=== PATIENT | female | born 1975 | race American Indian/Alaskan Native ===

== ENCOUNTER 2020-07-29 11:29 | Emergency (ER) | payer MEDICAID ==
--- NOTE | 2020-07-29 11:33 | Event Note ---
ED Screening Note Date of service: 07/29/20 Time: 11:32 ED Screening Note: Patient complains of a chest pain or shortness of breath x2 days History of diabetes Patient does appear short of breath examination This initial assessment/diagnostic orders/clinical plan/treatment(s) is/are subject to change based on patients health status, clinical progression and re- assessment by fellow clinical providers in the ED. Further treatment and workup at subsequent clinical providers discretion. Patient/guardian urged not to elope from the ED as their condition may be serious if not clinically assessed and managed. Initial orders include: Labs EKG POC glucose Chest x-ray
--- NOTE | 2020-07-29 12:08 | XRay Report ---
CHEST 2 VIEWS INDICATION / CLINICAL INFORMATION: Shortness of breath, chest pain. COMPARISON: None available. FINDINGS: SUPPORT DEVICES: None. HEART / MEDIASTINUM: No significant abnormality. LUNGS / PLEURA: There is generalized bilateral interstitial prominence with bibasilar interstitial op acities, right greater than left. No significant pleural effusion. No pneumothorax. ADDITIONAL FINDINGS: No significant additional findings. IMPRESSION: Suspected bilateral interstitial edema/atelectasis given the provided history. Please correlate with the clinical findings. Signer Name: Alexandru Godoy MD Signed: 07/29/2020 12:03 PM Workstation Name: [id number]
[2020-07-29 13:05] LABS: Basophils # (Auto) 0.1 K/mm3 (0.0-0.1); Basophils % (Auto) 0.7 % (0.0-1.8); Eosinophils # (Auto) 0.1 K/mm3 (0.0-0.4); Eosinophils % (Auto) 1.3 % (0.0-4.3); Hematocrit 44.3 % (30.3-42.9); Hemoglobin 14.8 gm/dl (10.1-14.3); Lymphocytes # (Auto) 2.9 K/mm3 (1.2-5.4); Lymphocytes % (Auto) 35.7 % (13.4-35.0); Mean Corpuscular HGB Conc 33 % (30-34); Mean Corpuscular Volume 93 fl (79-97); Monocytes # (Auto) 0.5 K/mm3 (0.0-0.8); Monocytes % (Auto) 6.3 % (0.0-7.3); Platelet Count 337 K/mm3 (140-440); Red Blood Count 4.74 M/mm3 (3.65-5.03); Red Cell Distribution Width 13.5 % (13.2-15.2)
[2020-07-29 13:43] LABS: Alanine Aminotransferase 16 units/L (7-56); Albumin 4.3 g/dL (3.9-5); Blood Urea Nitrogen 7 mg/dL (7-17); Calcium 9.8 mg/dL (8.4-10.2); Hemolysis Index 14
[2020-07-29 13:57] LABS: BUN/Creatinine Ratio 12
--- NOTE | 2020-07-29 16:42 | Emergency Department Report ---
ED Chest Pain HPI - General Chief Complaint: Chest Pain Stated Complaint: CHEST PAIN Time Seen by Provider: 07/29/20 11:31 Source: patient Mode of arrival: Ambulatory Limitations: No Limitations - History of Present Illness Initial Comments: Patient is 45-year-old female with history of diabetes and chronic alcohol abuse. Patient presented to the ER complaining of epigastric, chest pain for the last 2days. Patient described her pain as sharp with no radiation. Patient stated that she had history of pancreatitis secondary to alcohol. Patient kyle ed any shortness of breath, fever, chills or cough. MD Complaint: chest pain -: days(s) Onset: during rest Pain Location: epigastric Pain Radiation: none Severity: moderate Severity scale (0 -10): 5 Quality: sharp - Related Data Allergies Allergy/AdvReac Type Severity Reaction Status Date / Time No Known Allergies Allergy Unverified 07/29/20 17:58 Heart Score - HEART Score History: Slightly suspicious EKG: Normal Age: 45-65 Risk factors: 1-2 risk factors Troponin: < normal limit HEART Score: 2 - EKG Read Time Time EKG Completed: 11:36 EKG Read Time: 11:37 ED Review of Systems ROS: Stated complaint: CHEST PAIN Other details as noted in HPI Comment: All other systems reviewed and negative Constitutional: denies: chills, fever Respiratory: denies: cough, shortness of breath Cardiovascular: chest pain. denies: palpitations Gastrointestinal: denies: abdominal pain, nausea, vomiting Musculoskeletal: denies: back pain Neurological: denies: headache, weakness, numbness, paresthesias, confusion ED Past Medical Hx - Past Medical History Previous Medical History?: Yes Hx Diabetes: Yes ED Physical Exam - General Limitations: No Limitations General appearance: alert, in no apparent distress - Head Head exam: Present: atraumatic, normocephalic, normal inspection - Eye Eye exam: Present: normal appearance, PERRL - ENT ENT exam: Present: normal exam, normal orophraynx, mucous membranes moist - Neck Neck exam: Present: normal inspection, full ROM. Absent: tenderness, meningismus - Respiratory Respiratory exam: Present: normal lung sounds bilaterally, chest wall tenderness - Cardiovascular Cardiovascular Exam: Present: regular rate, normal rhythm, normal heart sounds - GI/Abdominal GI/Abdominal exam: Present: soft, normal bowel sounds. Absent: distended, tenderness, guarding, rebound, rigid, organomegaly, mass, bruit, pulsatile mass, hernia - Extremities Exam Extremities exam: Present: normal inspection, full ROM, normal capillary refill. Absent: pedal edema, calf tenderness - Back Exam Back exam: Present: normal inspection, full ROM. Absent: CVA tenderness (R), CVA tenderness (L) - Neurological Exam Neurological exam: Present: alert, oriented X3, CN II-XII intact - Psychiatric Psychiatric exam: Present: normal mood - Skin Skin exam: Present: warm, intact, normal color ED Course Vital Signs 07/29/20 17:56 Pulse Rate 82 Respiratory 22 Rate Blood Pressure 147/93 O2 Sat by Pulse 93 Oximetry ED Medical Decision Making - Lab Data Result diagrams: 07/29/20 12:20 07/29/20 12:20 - EKG Data -: EKG Interpreted by Ga EKG shows normal: sinus rhythm Rate: normal - EKG Data Interpretation: no acute changes - Radiology Data Radiology results: report reviewed - Medical Decision Making Patient is 45-year-old female with history of diabetes and chronic alcohol abuse. Patient presented to the ER complaining of epigastric, chest pain for the last 2days. Patient described her pain as sharp with no radiation. Patient stated that she had history of pancreatitis secondary to alcohol. Patient denied any shortness of breath, fever, chills or cough. Patient remained stable. EKG is unremarkable. Labs reviewed and is negative including troponin x2. Chest x-ray is unremarkable. Patient has a reproducible chest tenderness with possibility of acute costochondritis however patient strongly advised to follow-up with her primary care physician for outpatient cardiac work-up patient also advised to return to the ER if she develop any new symptoms. Critical care attestation.: If time is entered above; I have spent that time in minutes in the direct care of this critically ill patient, excluding procedure time. ED Disposition Clinical Impression: Acute chest pain, Costochondritis, acute Disposition: -01 TO HOME OR SELFCARE Is pt being admited?: No Condition: Stable Instructions: Chest Pain (ED), Costochondritis, [id number], Nonspecific Chest Pain, Adult, [id number] Referrals: PRIMARY CARE, [Primary Care Provider] - 3-5 Days
[2020-07-29] MEDS ORDERED: KETOROLAC 60 MG/2 ML INJ IM ONE (17:59)
[2020-07-29 20:14] VITALS: BP 127/89
--- NOTE | 2020-07-30 14:14 | Electrocardiograph Report ---
[facility] Test Date: 2020-07-29 Test Time: 11:36:27 Pat Name: POLO MOTA Department: ED Room: Gender: F Etymology Professor: ZELALEM : 1975 Requested By: MICHELET QUINTERO Order Number: [id number] Reading MD: Leona Dubose Measurements Intervals Whiteside Rate: 92 P: 41 AR: 141 QRS: 47 QRSD: 77 T: 60 QT: 429 QTc: 531 Interpretive Statements Sinus rhythm Prolonged QT interval No previous ECG available for comparison Electronically Signed On 07-30-2020 14:14:21 EDT by Leona Dubose
== END 2020-07-29 20:14 | disposition home or self-care (01) ==
LOC: ED 11:29
DX: M94.0 Chondrocostal junction syndrome [Tietze] (principal); R07.89 Other chest pain; E11.9 Type 2 diabetes mellitus without complications
CPT/HCPCS: 36415; 71046; 80053; 82962; 83690; 83880; 84484; 85025; 93005; 96372; 99284; J1885; 80320; G0480

== ENCOUNTER 2020-11-20 12:37 | Inpatient (IN) | payer MEDICAID ==
[2020-11-20] MEDS ORDERED: FAMOTIDINE 20 MG/2 ML INJ IV ONE (13:34)
[2020-11-20] MEDS ORDERED: SODIUM CHLORIDE 0.9% 1000 ML 1,000 ML IV ONE ×2 (13:34→13:35)
[2020-11-20] MEDS ORDERED: ONDANSETRON 4 MG/2 ML INJ IV ONE ×2 (13:34→15:47)
[2020-11-20] MEDS ORDERED: KETOROLAC 30 MG/1 ML INJ IV ONE (13:34)
[2020-11-20] MEDS ORDERED: DICYCLOMINE 20 MG/2 ML INJ IM ONE (13:34)
[2020-11-20 13:55] LABS: Basophils # (Auto) 0.1 K/mm3 (0.0-0.1); Basophils % (Auto) 0.9 % (0.0-1.8); Eosinophils # (Auto) 0.1 K/mm3 (0.0-0.4); Eosinophils % (Auto) 1.3 % (0.0-4.3); Hematocrit 43.4 % (30.3-42.9); Hemoglobin 15.2 gm/dl (10.1-14.3); Lymphocytes # (Auto) 2.5 K/mm3 (1.2-5.4); Lymphocytes % (Auto) 22.3 % (13.4-35.0); Mean Corpuscular HGB Conc 35 % (30-34); Mean Corpuscular Volume 92 fl (79-97); Monocytes # (Auto) 0.6 K/mm3 (0.0-0.8); Monocytes % (Auto) 5.3 % (0.0-7.3); Red Blood Count 4.72 M/mm3 (3.65-5.03); Red Cell Distribution Width 13.5 % (13.2-15.2)
[2020-11-20 14:18] LABS: Alanine Aminotransferase 19 units/L (7-56); Albumin 3.9 g/dL (3.9-5); Blood Urea Nitrogen 12 mg/dL (7-17); Calcium 9.4 mg/dL (8.4-10.2); Hemolysis Index 202
[2020-11-20 14:30] LABS: BUN/Creatinine Ratio 24
[2020-11-20] MEDS ORDERED: MORPHINE 4 MG/1 ML INJ IV ONE (15:47)
--- NOTE | 2020-11-20 16:55 | Cat Scan Report ---
CT ABDOMEN AND PELVIS WITHOUT IV CONTRAST INDICATION: pancreatitis. COMPARISON: None available. TECHNIQUE: All CT scans at this facility use dose modulation, automated exposure control, iterative reconstructi on or weight based dosing, when appropriate, to reduce radiation dose to as low as reasonably achieva ble. FINDINGS: Lung Bases: Dependent groundglass opacities may be atelectatic. Skeletal System: No acute abnormality. ABDOMEN: Liver: No significant abnormality. Gallbladder: Removed. Bile Ducts: No significant abnormality. Pancreas: There is peripancreatic stranding adjacent to the neck, head, and uncinate. Spleen: No significant abnormality. Adrenals: No significant abnormality. Right Kidney: No significant abnormality. Left Kidney: No significant abnormality. Upper GI tract: No significant abnormality. Lymph Nodes: No significant adenopathy. Aorta: No significant abnormality. Additional Findings: No significant abnormality. PELVIS: Colon: No acute abnormality. Urinary Bladder and Distal Ureters: No significant abnormality. Appendix: No significant abnormality. Lymph Nodes: No significant adenopathy. Additional Findings: None. IMPRESSION: 1. Acute pancreatitis. Given noncontrast technique, no pancreatitis-related complications are seen. 2. Incidental findings, as above. Signer Name: Miguel Angel Leyva MD Signed: 11/20/2020 4:51 PM Workstation Name: [email or web address]
[2020-11-20 17:15] LABS: Platelet Count 256 K/mm3 (140-440)
--- NOTE | 2020-11-20 17:30 | Emergency Department Report ---
ED Abdominal Pain HPI - General Chief Complaint: Abdominal Pain Stated Complaint: PAIN Time Seen by Provider: 11/20/20 13:31 Source: patient Mode of arrival: Wheelchair Limitations: No Limitations - History of Present Illness Initial Comments: Patient is a 45-year-old F [place] female with a past medical history of alcohol abuse diabetes and pancreatitis who is presenting with epigastric pain nausea vomiting for the past 2 days. Patient was drinking up until yesterday. Has been unable to keep anything down. Patient is is a poor historian secondary to the pain that she is writhing back and forth not giving much information other than that she is in extreme pain. Patient actively vomiting on her arrival. She is denying any fevers chills cough cold or congestion Severity scale (0 -10): 10 - Related Data Previous Rx's Medication Instructions Recorded Last Taken Type Naproxen [Naprosyn] 500 mg PO BID #14 tablet 07/29/20 Unknown Rx Allergies Allergy/AdvReac Type Severity Reaction Status Date / Time No Known Allergies Allergy Unverified 07/29/20 17:58 ED Review of Systems ROS: Stated complaint: PAIN Other details as noted in HPI Comment: All other systems reviewed and negative ED Past Medical Hx - Past Medical History Hx Diabetes: Yes - Social History Smoking Status: Unknown if ever smoked - Medications Home Medications: Home Medications Medication Instructions Recorded Confirmed Last Taken Type Naproxen [Naprosyn] 500 mg PO BID #14 tablet 07/29/20 Unknown Rx ED Physical Exam - General Limitations: No Limitations General appearance: alert, in distress - Head Head exam: Present: atraumatic, normocephalic - Eye Eye exam: Present: normal appearance, PERRL, EOMI - ENT ENT exam: Present: mucous membranes moist - Neck Neck exam: Present: normal inspection - Respiratory Respiratory exam: Present: normal lung sounds bilaterally. Absent: respiratory distress, wheezes, rales, rhonchi - Cardiovascular Cardiovascular Exam: Present: regular rate, normal rhythm, normal heart sounds. Absent: systolic murmur, diastolic murmur, rubs, gallop - GI/Abdominal GI/Abdominal exam: Present: soft, tenderness, normal bowel sounds. Absent: distended, guarding, rebound, rigid - Extremities Exam Extremities exam: Present: normal inspection - Back Exam Back exam: Present: normal inspection - Neurological Exam Neurological exam: Present: alert, oriented X3 - Psychiatric Psychiatric exam: Present: normal affect, normal mood - Skin Skin exam: Present: warm, dry, intact, normal color. Absent: rash ED Course Vital Signs 11/20/20 11/20/20 12:44 13:30 Respiratory 20 18 Rate O2 Sat by Pulse 100 97 Oximetry ED Medical Decision Making - Lab Data Result diagrams: 11/20/20 13:34 11/20/20 16:00 Lab Results 11/20/20 11/20/20 11/20/20 Range/Units 13:34 13:44 16:00 WBC 11.2 H (4.5-11.0) K/mm3 RBC 4.72 (3.65-5.03) M/mm3 Hgb 15.2 H (10.1-14.3) gm/dl Hct 43.4 H (30.3-42.9) % MCV 92 (79-97) fl MCH 32 (28-32) pg MCHC 35 H (30-34) % RDW 13.5 (13.2-15.2) % Plt Count 256 (140-440) K/mm3 Lymph % (Auto) 22.3 (13.4-35.0) % Morton % (Auto) 5.3 (0.0-7.3) % Eos % (Auto) 1.3 (0.0-4.3) % Baso % (Auto) 0.9 (0.0-1.8) % Lymph # (Auto) 2.5 (1.2-5.4) K/mm3 Morton # (Auto) 0.6 (0.0-0.8) K/mm3 Eos # (Auto) 0.1 (0.0-0.4) K/mm3 Baso # (Auto) 0.1 (0.0-0.1) K/mm3 Seg Neutrophils % 70.2 H (40.0-70.0) % Seg Neutrophils # 7.9 H (1.8-7.7) K/mm3 Sodium 131 L (137-145) mmol/L Potassium 5.9 H (3.6-5.0) mmol/L Chloride 97.7 L (98-107) mmol/L Carbon Dioxide 19 L (22-30) mmol/L Anion Gap 20 mmol/L BUN 12 (7-17) mg/dL Creatinine 0.5 L (0.6-1.2) mg/dL Estimated GFR > 60 ml/min BUN/Creatinine Ratio 24 % Glucose 285 H (65-100) mg/dL Calcium 9.4 (8.4-10.2) mg/dL Total Bilirubin 0.50 (0.1-1.2) mg/dL AST 31 (5-40) units/L ALT 19 (7-56) units/L Alkaline Phosphatase 147 H (35-129) units/L Total Protein 7.6 (6.3-8.2) g/dL Albumin 3.9 (3.9-5) g/dL Albumin/Globulin Ratio 1.1 % Lipase 988 H (13-60) units/L Plasma/Serum Alcohol < 0.01 (0-0.07) % 11/20/20 Range/Units 16:00 WBC (4.5-11.0) K/mm3 RBC (3.65-5.03) M/mm3 Hgb (10.1-14.3) gm/dl Hct (30.3-42.9) % MCV (79-97) fl MCH (28-32) pg MCHC (30-34) % RDW (13.2-15.2) % Plt Count (140-440) K/mm3 Lymph % (Auto) (13.4-35.0) % Morton % (Auto) (0.0-7.3) % Eos % (Auto) (0.0-4.3) % Baso % (Auto) (0.0-1.8) % Lymph # (Auto) (1.2-5.4) K/mm3 Morton # (Auto) (0.0-0.8) K/mm3 Eos # (Auto) (0.0-0.4) K/mm3 Baso # (Auto) (0.0-0.1) K/mm3 Seg Neutrophils % (40.0-70.0) % Seg Neutrophils # (1.8-7.7) K/mm3 Sodium (137-145) mmol/L Potassium 3.8 D (3.6-5.0) mmol/L Chloride (98-107) mmol/L Carbon Dioxide (22-30) mmol/L Anion Gap mmol/L BUN (7-17) mg/dL Creatinine (0.6-1.2) mg/dL Estimated GFR ml/min BUN/Creatinine Ratio % Glucose (65-100) mg/dL Calcium (8.4-10.2) mg/dL Total Bilirubin (0.1-1.2) mg/dL AST (5-40) units/L ALT (7-56) units/L Alkaline Phosphatase (35-129) units/L Total Protein (6.3-8.2) g/dL Albumin (3.9-5) g/dL Albumin/Globulin Ratio % Lipase (13-60) units/L Plasma/Serum Alcohol (0-0.07) % - Radiology Data [facility] [address] [place] [address] Cat Scan Report Signed Patient: POLO MOTA MR#: [id number] : 1975 Acct:[id number] Age/Sex: 45 / F ADM Date: 11/20/20 Loc: ED Attending Dr: Ordering Physician: JERROD FARAH MD Date of Service: 11/20/20 Procedure(s): CT abdomen pelvis wo con Accession Number(s): [id number] cc: JERROD FARAH MD CT ABDOMEN AND PELVIS WITHOUT IV CONTRAST INDICATION: pancreatitis. COMPARISON: None available. TECHNIQUE: All CT scans at this facility use dose modulation, automated exposure control, iterative reconstruction or weight based dosing, when appropriate, to reduce radiation dose to as low as reasonably achievable. FINDINGS: Lung Bases: Dependent groundglass opacities may be atelectatic. Skeletal System: No acute abnormality. ABDOMEN: Liver: No significant abnormality. Gallbladder: Removed. Bile Ducts: No significant abnormality. Pancreas: There is peripancreatic stranding adjacent to the neck, head, and uncinate. Spleen: No significant abnormality. Adrenals: No significant abnormality. Right Kidney: No significant abnormality. Left Kidney: No significant abnormality. Upper GI tract: No significant abnormality. Lymph Nodes: No significant adenopathy. Aorta: No significant abnormality. Additional Findings: No significant abnormality. PELVIS: Colon: No acute abnormality. Urinary Bladder and Distal Ureters: No significant abnormality. Appendix: No significant abnormality. Lymph Nodes: No significant adenopathy. Additional Findings: None. IMPRESSION: 1. Acute pancreatitis. Given noncontrast technique, no pancreatitis-related complications are seen. 2. Incidental findings, as above. Signer Name: Miguel Angel Leyva MD Signed: 11/20/2020 4:51 PM Workstation Name: [id number] - Medical Decision Making Patient with laboratory and CT evidence of acute pancreatitis. Patient started on IV hydration was given pain medication for pain control and antiemetics patient be admitted to the hospitalist service. Patient still with a pain level of 7 out of 10 after doses of morphine were given. Critical care attestation.: If time is entered above; I have spent that time in minutes in the direct care of this critically ill patient, excluding procedure time. ED Disposition Clinical Impression: Acute pancreatitis Disposition: 09 ADMITTED INPATIENT Is pt being admited?: Yes Does the pt Need Aspirin: No Condition: Stable Instructions: Abdominal Pain (ED), Acute Pancreatitis Time of Disposition: 17:31
[2020-11-20] MEDS ORDERED: ACETAMINOPHEN 325 MG TAB PO PRN (18:06)
--- NOTE | 2020-11-20 18:06 | History and Physical Report ---
History of Present Illness Chief complaint: My stomach hurts History of present illness: 45 YO Female with Obesity Hypoventilation Syndrome, ETOH Dependence, Recurrent Pancreatitis, DM presents to ED for evaluation. Patient reports "my stomach hurts". Patient states that she has experienced abdominal pain, nausea, m ultiple episodes of vomiting over the past 2 days with persistent symptoms over the same timeframe. Patient acknowledges alcohol ingestion over the past several days which was discontinued on yesterday due to multiple episodes of vomiting. Patient transported to [facility] via private vehicle for further care and evaluation of the aforementioned symptoms. The patient was seen and evaluated in the emergency department. All lab and imaging studies reviewed. Patient found to have acute pancreatitis suspected secondary to alcohol ingestion complicated by systemic inflammatory response syndrome. Patient admitted to medical floor and treated with IV fluid resuscitation therapy, pain control and supportive care. Patient denies fever, chills, chest pain, palpitation, productive cough, skin rash, recent ill contacts, ingestion of food/water from new or different sources, or known exposure to COVID-19. No prior admission for review. No medication listed at time of admission for reconciliation. Past History Past Medical History: diabetes, other (See HPI) Past Surgical History: No surgical history Social history: alcohol abuse Family history: hypertension Medications and Allergies Allergies Allergy/AdvReac Type Severity Reaction Status Date / Time No Known Allergies Allergy Unverified 07/29/20 17:58 Home Medications Medication Instructions Recorded Confirmed Last Taken Type Naproxen [Naprosyn] 500 mg PO BID #14 tablet 07/29/20 Unknown Rx Review of Systems Constitutional: no weight loss, no weight gain, no fever, no sweats Ears, nose, mouth and throat: no ear pain, no tinnitis, no decreased hearing, no nasal congestion Breasts: no change in shape, no swelling, no mass Cardiovascular: no chest pain, no orthopnea, no edema, no syncope Respiratory: no cough, no excessive sputum, no hemoptysis Gastrointestinal: abdominal pain, nausea, vomiting, no constipation, no hematemesis, no coffee ground emesis, no BRBPR, no melena, no hematochezia, no loss of appetite, no early satiety Genitourinary Female: no pelvic pain, no flank pain, no dysuria, no urinary frequency, no urgency Rectal: no pain, no incontinence Musculoskeletal: no neck pain, no arm numbness/tingling, no low back pain, no leg numbness/tingling Integumentary: no rash, no redness, no wounds, no jaundice Neurological: no head injury, no transient paralysis, no weakness, no parathesias, no tingling, no seizures, no syncope Psychiatric: no anxiety, no change in sleep habits, no hypersomnia, no change in appetite Endocrine: no cold intolerance, no polyphagia, no excessive thirst, no excessive sweating Hematologic/Lymphatic: no easy bruising, no easy bleeding, no lymphadenopathy Allergic/Immunologic: no allergic rhinitis, no wheezing Exam - Constitutional Vitals: Temp Pulse Resp BP Pulse Ox 18 97 11/20/20 17:35 11/20/20 13:30 General appearance: Present: mild distress, obese - EENT Eyes: Present: PERRL ENT: hearing intact, clear oral mucosa - Neck Neck: Present: supple, normal ROM - Respiratory Respiratory effort: normal Respiratory: bilateral: CTA - Cardiovascular Heart Sounds: Present: S1 & S2. Absent: rub, click - Extremities Extremities: pulses symmetrical, No edema Peripheral Pulses: within normal limits - Abdominal General gastrointestinal: Present: soft, non-tender, non-distended, normal bowel sounds Female genitourinary: Present: normal - Integumentary Integumentary: Present: clear, warm, dry - Musculoskeletal Musculoskeletal: gait normal, strength equal bilaterally - Psychiatric Psychiatric: appropriate mood/affect, intact judgment & insight - Neurologic Neurologic: CNII-XII intact, moves all extremities Results - Labs CBC & Chem 7: 11/20/20 13:34 11/20/20 16:00 Labs: Abnormal lab results 11/20/20 11/20/20 Range/Units 13:34 13:44 WBC 11.2 H (4.5-11.0) K/mm3 Hgb 15.2 H (10.1-14.3) gm/dl Hct 43.4 H (30.3-42.9) % MCHC 35 H (30-34) % Seg Neutrophils % 70.2 H (40.0-70.0) % Seg Neutrophils # 7.9 H (1.8-7.7) K/mm3 Sodium 131 L (137-145) mmol/L Potassium 5.9 H (3.6-5.0) mmol/L Chloride 97.7 L (98-107) mmol/L Carbon Dioxide 19 L (22-30) mmol/L Creatinine 0.5 L (0.6-1.2) mg/dL Glucose 285 H (65-100) mg/dL Alkaline Phosphatase 147 H (35-129) units/L Lipase 988 H (13-60) units/L Assessment and Plan - Patient Problems (1) Acute pancreatitis Status: Acute Plan to address problem: CT scan abdomen and pelvis, serial abdominal exam, IV fluid resuscitation therapy, pain control, bowel rest, repeat lipase in a.m. (2) Alcohol dependence Status: Acute Plan to address problem: CIWA protocol, supportive care, outpatient Alcoholics Anonymous meeting attendance at discharge. (3) Obesity hypoventilation syndrome Status: Acute Plan to address problem: Balanced diet, increase physical activity discharge, outpatient pulmonary follow-up for sleep study. (4) Diabetes Status: Acute Plan to address problem: Consistent carbohydrate diet when patient is able to tolerate oral intake, insulin protocol, hypoglycemia protocol (5) DVT prophylaxis Status: Acute Plan to address problem: SCD to bilateral lower extremities while in bed, patient is ambulatory (6) Advance care planning Status: Acute Plan to address problem: Disease education conducted, care plan discussed, diagnosis discussed, prognosis discussed, patient is full code. Patient knowledges understanding and agreement with care plan. Patient counseled regarding alcohol cessation.
[2020-11-20] MEDS ORDERED: SODIUM CHLORIDE 0.9% 1000 ML 1,000 ML IV SCH (18:15)
[2020-11-20] MEDS ORDERED: THIAMINE 100 MG, FOLIC ACID 1 MG, MULTIPLE VITAMIN INJ, ADULT 10 ML in SODIUM CHLORIDE ... IV ONE (18:17)
[2020-11-20] MEDS: LORazepam 2 MG/ML VIAL IV PRN (21:31)
[2020-11-20] MEDS: MORPHINE 4 MG/1 ML INJ IV PRN (21:31)
[2020-11-20] MEDS: ONDANSETRON 4 MG/2 ML INJ IV PRN (22:20)
[2020-11-21] MEDS: LORazepam 2 MG/ML VIAL IV PRN ×5 (01:14→18:04)
[2020-11-21] MEDS: MORPHINE 2 MG/1 ML INJ IV PRN ×3 (01:14→21:16)
[2020-11-21] MEDS: ONDANSETRON 4 MG/2 ML INJ IV PRN (03:54)
[2020-11-21 07:09] LABS: Alanine Aminotransferase 11 units/L (7-56); Albumin 3.6 g/dL (3.9-5); BUN/Creatinine Ratio 20; Blood Urea Nitrogen 10 mg/dL (7-17); Calcium 8.7 mg/dL (8.4-10.2); Hemolysis Index 5
[2020-11-21] MEDS: MORPHINE 4 MG/1 ML INJ IV PRN (07:22)
--- NOTE | 2020-11-21 07:43 | Progress Note ---
Assessment and Plan Assessment and plan: 45-year-old female with history of alcohol dependence, OHS, recurrent alcoholic pancreatitis who presented with abdominal pain, nausea and vomiting. Found to have acute pancreatitis secondary to alcohol. Patient stable, tolerating clear liquid diet and IV fluids. #Acute pancreatitis -Physical exam, CT abdomen and lipase indicative of acute pancreatitis -Continue IV fluids -Advance diet as tolerated -As needed pain medications #Hyperkalemia -K 5.9 -Improved to 3.8 after medical management -will continue to monitor #Alcohol dependence -Chronic -[facility] protocol -Thiamine and folate supplementation -will monitor potassium and magnesium levels -will benefit from attending AA was discharged #Type 2 diabetes -SSI + Accu-Cheks #Obesity hypoventilation syndrome -Counseled on importance of weight loss -will need outpatient sleep study Disposition Plan: Home Total Time Spent with Patient (Minutes): 30 minutes History Interval history: No acute events overnight. Patient continues to report abdominal pain and hunger. No other complaints. Hospitalist Physical - Physical exam Narrative exam: GENERAL: Well-developed well-nourished. Lying in bed sleep, no acute distress. CHEST/LUNGS: CTAB on room air HEART/CARDIOVASCULAR: RRR. No murmur, rubs or gallops appreciated. ABDOMEN: +BS. Tender to palpation in epigastrium. NEURO: No focal motor deficit. Follows all commands. MUSCULOSKELETAL: No joint effusion EXTREMITIES: No cyanosis, clubbing or edema. PSYCH: Cooperative. - Constitutional Vitals: Temp Pulse Resp BP Pulse Ox 98.1 F 94 H 20 140/85 95 11/21/20 05:07 11/21/20 05:07 11/21/20 05:07 11/21/20 05:07 11/21/20 05:07 General appearance: Present: mild distress, obese Results - Labs CBC & Chem 7: 11/20/20 13:34 11/21/20 05:37 Labs: Laboratory Last Values WBC 11.2 K/mm3 (4.5-11.0) H 11/20/20 13:34 RBC 4.72 M/mm3 (3.65-5.03) 11/20/20 13:34 Hgb 15.2 gm/dl (10.1-14.3) H 11/20/20 13:34 Hct 43.4 % (30.3-42.9) H 11/20/20 13:34 MCV 92 fl (79-97) 11/20/20 13:34 MCH 32 pg (28-32) 11/20/20 13:34 MCHC 35 % (30-34) H 11/20/20 13:34 RDW 13.5 % (13.2-15.2) 11/20/20 13:34 Plt Count 256 K/mm3 (140-440) 11/20/20 13:34 Lymph % (Auto) 22.3 % (13.4-35.0) 11/20/20 13:34 Burt % (Auto) 5.3 % (0.0-7.3) 11/20/20 13:34 Eos % (Auto) 1.3 % (0.0-4.3) 11/20/20 13:34 Baso % (Auto) 0.9 % (0.0-1.8) 11/20/20 13:34 Lymph # (Auto) 2.5 K/mm3 (1.2-5.4) 11/20/20 13:34 Burt # (Auto) 0.6 K/mm3 (0.0-0.8) 11/20/20 13:34 Eos # (Auto) 0.1 K/mm3 (0.0-0.4) 11/20/20 13:34 Baso # (Auto) 0.1 K/mm3 (0.0-0.1) 11/20/20 13:34 Seg Neutrophils % 70.2 % (40.0-70.0) H 11/20/20 13:34 Seg Neutrophils # 7.9 K/mm3 (1.8-7.7) H 11/20/20 13:34 Sodium 131 mmol/L (137-145) L 11/20/20 13:44 Potassium 3.8 mmol/L (3.6-5.0) D 11/20/20 16:00 Chloride 97.7 mmol/L (98-107) L 11/20/20 13:44 Carbon Dioxide 20 mmol/L (22-30) L 11/21/20 05:37 Anion Gap 20 mmol/L 11/20/20 13:44 BUN 10 mg/dL (7-17) 11/21/20 05:37 Creatinine 0.5 mg/dL (0.6-1.2) L 11/21/20 05:37 Estimated GFR > 60 ml/min 11/21/20 05:37 BUN/Creatinine Ratio 20 % 11/21/20 05:37 Glucose 196 mg/dL (65-100) H 11/21/20 05:37 Calcium 8.7 mg/dL (8.4-10.2) 11/21/20 05:37 Total Bilirubin 0.50 mg/dL (0.1-1.2) 11/21/20 05:37 AST 13 units/L (5-40) 11/21/20 05:37 ALT 11 units/L (7-56) 11/21/20 05:37 Alkaline Phosphatase 130 units/L (35-129) H 11/21/20 05:37 Total Protein 6.6 g/dL (6.3-8.2) 11/21/20 05:37 Albumin 3.6 g/dL (3.9-5) L 11/21/20 05:37 Albumin/Globulin Ratio 1.2 % 11/21/20 05:37 Lipase 260 units/L (13-60) H 11/21/20 05:37 Plasma/Serum Alcohol < 0.01 % (0-0.07) 11/20/20 16:00 Desai/IV: Voiding Method Incontinent Active Medications - Current Medications Current Medications: Generic Name Dose Route Start Last Admin Trade Name Freq PRN Reason Stop Dose Admin Acetaminophen 650 mg 11/20/20 18:06 Acetaminophen 325 Mg Tab PO Q4H PRN Pain MILD(1-3)/Fever >100.5/KEE Sodium Chloride 1,000 mls @ 150 mls/hr 11/20/20 18:15 Nacl 0.9% 1000 Ml IV DIRECT PHUC Lorazepam 2 mg 11/20/20 18:16 11/21/20 04:01 Lorazepam 2 Mg/Ml Vial IV 2 mg Q1HR PRN Administration ABBY-Hernandez 8-15 Morphine Sulfate 2 mg 11/20/20 18:06 11/21/20 01:14 Morphine 2 Mg/1 Ml Inj IV 2 mg Q4H PRN Administration Pain, Moderate (4-6) Morphine Sulfate 4 mg 11/20/20 18:06 11/21/20 07:22 Morphine 4 Mg/1 Ml Inj IV 4 mg Q12H PRN Administration Pain , Severe (7-10) Ondansetron HCl 4 mg 11/20/20 18:06 11/21/20 03:54 Ondansetron 4 Mg/2 Ml Inj IV 4 mg Q8H PRN Administration Nausea And Vomiting Sodium Chloride 10 ml 11/20/20 22:00 11/20/20 22:20 Sodium Chloride 0.9% 10 Ml Flush Syringe IV 10 ml BID PHUC Administration Sodium Chloride 10 ml 11/20/20 18:06 Sodium Chloride 0.9% 10 Ml Flush Syringe IV PRN PRN LINE FLUSH
[2020-11-22] MEDS: LORazepam 2 MG/ML VIAL IV PRN ×10 (00:37→21:35)
[2020-11-22] MEDS: ONDANSETRON 4 MG/2 ML INJ IV PRN (05:29)
[2020-11-22] MEDS: MORPHINE 2 MG/1 ML INJ IV PRN ×2 (06:34→15:46)
--- NOTE | 2020-11-22 06:38 | XRay Report ---
LUMBAR SPINE 3 VIEWS INDICATION / CLINICAL INFORMATION: s/p fall. COMPARISON: 11/20/2020 FINDINGS: VERTEBRAE: No acute fracture. No significant malalignment. DISC SPACES / FACET JOINTS:There is mild degenerative disc disease in the lower lumbar spine. There i s degenerative facet disease throughout the lumbar spine, most pronounced in the lower lumbar spine. PARASPINAL SOFT TISSUES:No significant abnormality. ADDITIONAL FINDINGS: None. Signer Name: Tello Brown DO Signed: 11/22/2020 6:34 AM Workstation Name: [email or web address]
--- NOTE | 2020-11-22 08:46 | XRay Report ---
RIGHT FEMUR 2 VIEWS INDICATION / CLINICAL INFORMATION: Right thigh pain/injury after fall. COMPARISON: None available. FINDINGS: There is suboptimal visualization of the right hip due to portable technique. BONES and JOINT(S): No acute fracture or subluxation. Mild/moderate osteoarthritis of the right knee is noted with mild osteoarthritis of the right hip. SOFT TISSUES: No significant abnormality. ADDITIONAL FINDINGS: None. IMPRESSION: Limited exam without visualization of an acute abnormality of the right femur. Signer Name: Alexandru Godoy MD Signed: 11/22/2020 8:41 AM Workstation Name: [email or web address]
[2020-11-22] MEDS: MORPHINE 4 MG/1 ML INJ IV PRN (10:24)
[2020-11-22] MEDS ORDERED: DEXTROSE 50% IN WATER (25GM) 50 ML SYRINGE IV PRN (11:03)
--- NOTE | 2020-11-22 11:08 | Progress Note ---
Assessment and Plan Assessment and plan: 45-year-old female with history of alcohol dependence, OHS, recurrent alcoholic pancreatitis who presented with abdominal pain, nausea and vomiting. Found to have acute pancreatitis secondary to alcohol. Patient stable, tolerating clear liquid diet and IV fluids. #Acute pancreatitis -Physical exam, CT abdomen and lipase indicative of acute pancreatitis -Continue IV fluids -Advance diet as tolerated -As needed pain medications #Fall -Patient fell while in room -X-ray femur and lumbar spine negative for acute fracture -CTH pending -Fall precautions -PT consulted #Hyperkalemia -resolved -will continue to monitor #Alcohol dependence -Chronic -[facility] protocol -Thiamine and folate supplementation -will monitor potassium and magnesium levels -will benefit from attending AA was discharged #Type 2 diabetes -SSI + Accu-Cheks #Obesity hypoventilation syndrome -Counseled on importance of weight loss -will need outpatient sleep study Disposition Plan: Home Total Time Spent with Patient (Minutes): 20 minutes History Interval history: Patient reports fall overnight after getting up out of bed. Denies head trauma, does report hip and abdominal pain. Hospitalist Physical - Physical exam Narrative exam: GENERAL: Well-developed well-nourished. Lying in bed sleep, no acute distress. CHEST/LUNGS: CTAB on room air HEART/CARDIOVASCULAR: RRR. No murmur, rubs or gallops appreciated. ABDOMEN: +BS. Tender to palpation in epigastrium. MUSCULOSKELETAL: No joint effusion EXTREMITIES: No cyanosis, clubbing or edema. PSYCH: Cooperative. - Constitutional Vitals: Temp Pulse Resp BP Pulse Ox 98.2 F 88 18 133/88 94 11/22/20 04:39 11/22/20 06:38 11/22/20 06:38 11/22/20 06:38 11/22/20 06:38 General appearance: Present: mild distress, obese Results - Labs CBC & Chem 7: 11/20/20 13:34 11/21/20 05:37 Labs: Laboratory Last Values WBC 11.2 K/mm3 (4.5-11.0) H 11/20/20 13:34 RBC 4.72 M/mm3 (3.65-5.03) 11/20/20 13:34 Hgb 15.2 gm/dl (10.1-14.3) H 11/20/20 13:34 Hct 43.4 % (30.3-42.9) H 11/20/20 13:34 MCV 92 fl (79-97) 11/20/20 13:34 MCH 32 pg (28-32) 11/20/20 13:34 MCHC 35 % (30-34) H 11/20/20 13:34 RDW 13.5 % (13.2-15.2) 11/20/20 13:34 Plt Count 256 K/mm3 (140-440) 11/20/20 13:34 Lymph % (Auto) 22.3 % (13.4-35.0) 11/20/20 13:34 [place] % (Auto) 5.3 % (0.0-7.3) 11/20/20 13:34 Eos % (Auto) 1.3 % (0.0-4.3) 11/20/20 13:34 Baso % (Auto) 0.9 % (0.0-1.8) 11/20/20 13:34 Lymph # (Auto) 2.5 K/mm3 (1.2-5.4) 11/20/20 13:34 [place] # (Auto) 0.6 K/mm3 (0.0-0.8) 11/20/20 13:34 Eos # (Auto) 0.1 K/mm3 (0.0-0.4) 11/20/20 13:34 Baso # (Auto) 0.1 K/mm3 (0.0-0.1) 11/20/20 13:34 Seg Neutrophils % 70.2 % (40.0-70.0) H 11/20/20 13:34 Seg Neutrophils # 7.9 K/mm3 (1.8-7.7) H 11/20/20 13:34 Sodium 137 mmol/L (137-145) 11/21/20 05:37 Potassium 3.7 mmol/L (3.6-5.0) 11/21/20 05:37 Chloride 102.7 mmol/L (98-107) 11/21/20 05:37 Carbon Dioxide 20 mmol/L (22-30) L 11/21/20 05:37 Anion Gap 18 mmol/L 11/21/20 05:37 BUN 10 mg/dL (7-17) 11/21/20 05:37 Creatinine 0.5 mg/dL (0.6-1.2) L 11/21/20 05:37 Estimated GFR > 60 ml/min 11/21/20 05:37 BUN/Creatinine Ratio 20 % 11/21/20 05:37 Glucose 196 mg/dL (65-100) H 11/21/20 05:37 POC Glucose 189 mg/dL (70-105) H 11/21/20 15:54 Calcium 8.7 mg/dL (8.4-10.2) 11/21/20 05:37 Total Bilirubin 0.50 mg/dL (0.1-1.2) 11/21/20 05:37 AST 13 units/L (5-40) 11/21/20 05:37 ALT 11 units/L (7-56) 11/21/20 05:37 Alkaline Phosphatase 130 units/L (35-129) H 11/21/20 05:37 Total Protein 6.6 g/dL (6.3-8.2) 11/21/20 05:37 Albumin 3.6 g/dL (3.9-5) L 11/21/20 05:37 Albumin/Globulin Ratio 1.2 % 11/21/20 05:37 Lipase 260 units/L (13-60) H 11/21/20 05:37 Plasma/Serum Alcohol < 0.01 % (0-0.07) 11/20/20 16:00 Desai/IV: Voiding Method Incontinent Active Medications - Current Medications Current Medications: Generic Name Dose Route Start Last Admin Trade Name Freq PRN Reason Stop Dose Admin Acetaminophen 650 mg 11/20/20 18:06 Acetaminophen 325 Mg Tab PO Q4H PRN Pain MILD(1-3)/Fever >100.5/KEE Dextrose 50 ml 11/22/20 11:03 Dextrose 50% In Water (25gm) 50 Ml Syringe IV Q30MIN PRN Hypoglycemia Protocol Folic Acid 1 mg 11/22/20 11:00 Folic Acid 1 Mg Tab PO QDAY PHUC Sodium Chloride 1,000 mls @ 150 mls/hr 11/20/20 18:15 11/21/20 18:09 Nacl 0.9% 1000 Ml IV 150 mls/hr DIRECT PHUC Administration Thiamine HCl 100 mg/ Sodium 51 mls @ 100 mls/hr 11/22/20 11:00 Chloride IV QDAY PHUC Insulin Human Lispro 0 unit 11/22/20 11:30 Insulin Lispro 100 Unit/Ml SUB-Q ACHS PHUC Protocol Lorazepam 2 mg 11/20/20 18:16 11/22/20 10:40 Lorazepam 2 Mg/Ml Vial IV 2 mg Q1HR PRN Administration Etelvina 8-15 Morphine Sulfate 2 mg 11/20/20 18:06 11/22/20 06:34 Morphine 2 Mg/1 Ml Inj IV 2 mg Q4H PRN Administration Pain, Moderate (4-6) Morphine Sulfate 4 mg 11/20/20 18:06 11/22/20 10:24 Morphine 4 Mg/1 Ml Inj IV 4 mg Q12H PRN Administration Pain , Severe (7-10) Ondansetron HCl 4 mg 11/20/20 18:06 11/22/20 05:29 Ondansetron 4 Mg/2 Ml Inj IV 4 mg Q8H PRN Administration Nausea And Vomiting Sodium Chloride 10 ml 11/20/20 22:00 11/22/20 10:27 Sodium Chloride 0.9% 10 Ml Flush Syringe IV 10 ml BID PHUC Administration Sodium Chloride 10 ml 11/20/20 18:06 11/22/20 05:00 Sodium Chloride 0.9% 10 Ml Flush Syringe IV 10 ml PRN PRN Administration LINE FLUSH
--- NOTE | 2020-11-22 11:27 | Cat Scan Report ---
CT HEAD WITHOUT CONTRAST INDICATION : Head injury after fall. TECHNIQUE: Axial, coronal and sagittal CT imaging was performed from the skull apex through the skul l base without contrast. All CT scans at this location are performed using CT dose reduction for ALA RA by means of automated exposure control. COMPARISON: None available. FINDINGS: PARENCHYMA: No mass, midline shift, hemorrhage, extraaxial collection or acute territorial infarctio n. VENTRICLES: Symmetric and normal in size. SOFT TISSUES: No significant abnormality of the included soft tissues/orbits. BONES: No acute osseous abnormality. SINUSES: No significant abnormality. ADDITIONAL FINDINGS: None. IMPRESSION: 1. No acute intracranial abnormality. Signer Name: Alexandru Godoy MD Signed: 11/22/2020 11:23 AM Workstation Name: [email or web address]
[2020-11-22] MEDS: FOLIC ACID 1 MG TAB PO SCH (13:31)
[2020-11-22] MEDS: INSULIN LISPRO 100 UNIT/ML SUB-Q SCH ×3 (13:32→23:15)
[2020-11-22] MEDS: THIAMINE 100 MG in SODIUM CHLORIDE 0.9% 50 ML IV SCH (15:26)
[2020-11-22 15:35] LABS: Hematocrit 38.6 % (30.3-42.9); Hemoglobin 13.1 gm/dl (10.1-14.3); Mean Corpuscular HGB Conc 34 % (30-34); Mean Corpuscular Volume 94 fl (79-97); Platelet Count 257 K/mm3 (140-440); Red Blood Count 4.12 M/mm3 (3.65-5.03)
[2020-11-22 15:55] LABS: BUN/Creatinine Ratio 12; Blood Urea Nitrogen 6 mg/dL (7-17); Calcium 9.2 mg/dL (8.4-10.2); Hemolysis Index 4
[2020-11-22] MEDS ORDERED: HALOPERIDOL LACTATE 5 MG/1 ML INJ IM ONE (22:43)
[2020-11-23] MEDS ORDERED: ZIPRASIDONE MESYLATE 20 MG VIAL IM ONE (02:50)
[2020-11-23] MEDS ORDERED: WATER FOR INJ Sterile (PF) 10 ML ONE (02:53)
[2020-11-23] MEDS ORDERED: WATER FOR INJ Sterile (PF) 10 ML IM ONE (03:07)
[2020-11-23 08:26] LABS: Alanine Aminotransferase 15 units/L (7-56); Albumin 3.6 g/dL (3.9-5); Blood Urea Nitrogen 5 mg/dL (7-17); Calcium 9.5 mg/dL (8.4-10.2); Hemolysis Index 9
[2020-11-23 08:29] LABS: BUN/Creatinine Ratio 10
[2020-11-23] MEDS ORDERED: MAGNESIUM SULFATE 4 GM/100 ML BAG IV ONE (09:00)
[2020-11-23] MEDS: FOLIC ACID 1 MG TAB PO SCH (09:48)
[2020-11-23] MEDS: INSULIN LISPRO 100 UNIT/ML SUB-Q SCH ×4 (10:00→23:11)
[2020-11-23] MEDS: THIAMINE 100 MG in SODIUM CHLORIDE 0.9% 50 ML IV SCH (12:50)
--- NOTE | 2020-11-23 13:55 | Progress Note ---
Assessment and Plan Assessment and plan: 45-year-old female with history of alcohol dependence, OHS, recurrent alcoholic pancreatitis who presented with abdominal pain, nausea and vomiting. Found to have acute pancreatitis secondary to alcohol. Patient stable, tolerating clear liquid diet and IV fluids. #Acute pancreatitis -Physical exam, CT abdomen and lipase indicative of acute pancreatitis -Continue IV fluids -Advance diet as tolerated -As needed pain medications, pain well controlled #Fall -Patient fell while in room -X-ray femur and lumbar spine negative for acute fracture -CTH negative -Fall precautions -PT consulted #Hyperkalemia -resolved -will continue to monitor #Alcohol dependence -Chronic -[facility] protocol -Thiamine and folate supplementation -will monitor potassium and magnesium levels -will benefit from attending AA was discharged #Type 2 diabetes -10 units of Lantus added -SSI + Accu-Cheks #Obesity hypoventilation syndrome -Counseled on importance of weight loss -will need outpatient sleep study Disposition Plan: Home tomorrow Total Time Spent with Patient (Minutes): 20 minutes History Interval history: Per nursing patient agitated overnight. Patient currently in bed sleeping. Has no complaints. Hospitalist Physical - Physical exam Narrative exam: GENERAL: Well-developed well-nourished. Lying in bed sleep, no acute distress. CHEST/LUNGS: CTAB on room air HEART/CARDIOVASCULAR: RRR. No murmur, rubs or gallops appreciated. ABDOMEN: +BS. Nontender, nondistended. EXTREMITIES: No cyanosis, clubbing or edema. PSYCH: Cooperative. - Constitutional Vitals: Temp Pulse Resp BP Pulse Ox 98.2 F 90 19 116/69 91 11/23/20 11:49 11/23/20 11:49 11/23/20 11:49 11/23/20 11:49 11/23/20 11:49 General appearance: Present: mild distress, obese Results - Labs CBC & Chem 7: 11/22/20 15:10 11/23/20 07:15 Labs: Laboratory Last Values WBC 5.9 K/mm3 (4.5-11.0) 11/22/20 15:10 RBC 4.12 M/mm3 (3.65-5.03) 11/22/20 15:10 Hgb 13.1 gm/dl (10.1-14.3) 11/22/20 15:10 Hct 38.6 % (30.3-42.9) 11/22/20 15:10 MCV 94 fl (79-97) 11/22/20 15:10 MCH 32 pg (28-32) 11/22/20 15:10 MCHC 34 % (30-34) 11/22/20 15:10 RDW 13.0 % (13.2-15.2) L 11/22/20 15:10 Plt Count 257 K/mm3 (140-440) 11/22/20 15:10 Lymph % (Auto) 22.3 % (13.4-35.0) 11/20/20 13:34 [place] % (Auto) 5.3 % (0.0-7.3) 11/20/20 13:34 Eos % (Auto) 1.3 % (0.0-4.3) 11/20/20 13:34 Baso % (Auto) 0.9 % (0.0-1.8) 11/20/20 13:34 Lymph # (Auto) 2.5 K/mm3 (1.2-5.4) 11/20/20 13:34 Dickinson # (Auto) 0.6 K/mm3 (0.0-0.8) 11/20/20 13:34 Eos # (Auto) 0.1 K/mm3 (0.0-0.4) 11/20/20 13:34 Baso # (Auto) 0.1 K/mm3 (0.0-0.1) 11/20/20 13:34 Seg Neutrophils % 70.2 % (40.0-70.0) H 11/20/20 13:34 Seg Neutrophils # 7.9 K/mm3 (1.8-7.7) H 11/20/20 13:34 Sodium 138 mmol/L (137-145) 11/23/20 07:15 Potassium 3.7 mmol/L (3.6-5.0) 11/23/20 07:15 Chloride 103.1 mmol/L (98-107) 11/23/20 07:15 Carbon Dioxide 22 mmol/L (22-30) 11/23/20 07:15 Anion Gap 17 mmol/L 11/23/20 07:15 BUN 5 mg/dL (7-17) L 11/23/20 07:15 Creatinine 0.5 mg/dL (0.6-1.2) L 11/23/20 07:15 Estimated GFR > 60 ml/min 11/23/20 07:15 BUN/Creatinine Ratio 10 % 11/23/20 07:15 Glucose 258 mg/dL (65-100) H 11/23/20 07:15 POC Glucose 204 mg/dL (70-105) H 11/23/20 11:47 Hemoglobin A1c 10.9 % (4-6) H 11/23/20 Unknown Calcium 9.5 mg/dL (8.4-10.2) 11/23/20 07:15 Phosphorus 2.80 mg/dL (2.5-4.5) 11/23/20 07:15 Magnesium 1.50 mg/dL (1.7-2.3) L 11/23/20 07:15 Total Bilirubin 0.30 mg/dL (0.1-1.2) 11/23/20 07:15 AST 19 units/L (5-40) 11/23/20 07:15 ALT 15 units/L (7-56) 11/23/20 07:15 Alkaline Phosphatase 117 units/L (35-129) 11/23/20 07:15 Total Protein 6.6 g/dL (6.3-8.2) 11/23/20 07:15 Albumin 3.6 g/dL (3.9-5) L 11/23/20 07:15 Albumin/Globulin Ratio 1.2 % 11/23/20 07:15 Lipase 260 units/L (13-60) H 11/21/20 05:37 Plasma/Serum Alcohol < 0.01 % (0-0.07) 11/20/20 16:00 Microbiology: Microbiology 11/20/20 12:30 Urine,Clean Catch Urine Culture - Preliminary Desai/IV: Voiding Method Diaper Active Medications - Current Medications Current Medications: Generic Name Dose Route Start Last Admin Trade Name Freq PRN Reason Stop Dose Admin Acetaminophen 650 mg 11/20/20 18:06 Acetaminophen 325 Mg Tab PO Q4H PRN Pain MILD(1-3)/Fever >100.5/KEE Dextrose 50 ml 11/22/20 11:03 Dextrose 50% In Water (25gm) 50 Ml Syringe IV Q30MIN PRN Hypoglycemia Protocol Folic Acid 1 mg 11/22/20 11:00 11/23/20 09:48 Folic Acid 1 Mg Tab PO 1 mg QDAY PHUC Administration Sodium Chloride 1,000 mls @ 150 mls/hr 11/20/20 18:15 11/21/20 18:09 Nacl 0.9% 1000 Ml IV 150 mls/hr DIRECT PHUC Administration Thiamine HCl 100 mg/ Sodium 51 mls @ 100 mls/hr 11/22/20 14:00 11/23/20 12:50 Chloride IV 11/24/20 13:59 100 mls/hr QDAY PHUC Administration Insulin Glargine 10 units 11/24/20 09:00 Insulin Glargine 100 Units/Ml SUB-Q QAMDIAB PHUC Insulin Human Lispro 0 unit 11/22/20 12:00 11/23/20 10:00 Insulin Lispro 100 Unit/Ml SUB-Q 3 unit ACHS PHUC Administration Protocol Lorazepam 2 mg 11/20/20 18:16 11/22/20 21:35 Lorazepam 2 Mg/Ml Vial IV 2 mg Q1HR PRN Administration ABBYHernandez 8-15 Morphine Sulfate 2 mg 11/20/20 18:06 11/22/20 15:46 Morphine 2 Mg/1 Ml Inj IV 2 mg Q4H PRN Administration Pain, Moderate (4-6) Morphine Sulfate 4 mg 11/20/20 18:06 11/22/20 10:24 Morphine 4 Mg/1 Ml Inj IV 4 mg Q12H PRN Administration Pain , Severe (7-10) Ondansetron HCl 4 mg 11/20/20 18:06 11/22/20 05:29 Ondansetron 4 Mg/2 Ml Inj IV 4 mg Q8H PRN Administration Nausea And Vomiting Sodium Chloride 10 ml 11/20/20 22:00 11/23/20 09:48 Sodium Chloride 0.9% 10 Ml Flush Syringe IV 10 ml BID PHUC Administration Sodium Chloride 10 ml 11/20/20 18:06 11/22/20 05:00 Sodium Chloride 0.9% 10 Ml Flush Syringe IV 10 ml PRN PRN Administration LINE FLUSH Thiamine HCl 100 mg 11/25/20 10:00 Thiamine 100 Mg Tab PO QDAY PHUC
[2020-11-23 22:16] VITALS: BP 130/88
[2020-11-24] MEDS ORDERED: INSULIN GLARGINE 100 UNITS/ML SUB-Q SCH (09:00)
--- NOTE | 2020-11-25 00:25 | Discharge Summary ---
Providers - Providers Date of Admission: 11/20/20 18:06 Date of discharge: 11/25/20 Attending physician: SUHAIL RANDALL MD 11/22/20 10:27 Physical Therapy Evaluation and Treat [CONS] Routine Comment: Reason For Exam: unsteadiness Primary care physician: FABIEN GUERRERO MD Hospitalization Reason for admission: Acute pancreatitis Condition: Stable Hospital course: 45-year-old woman who presented with complaints of abdominal pain and anorexia after binge drinking. Found to have hyperkalemia and signs of acute pancreatitis on CT abdomen/pelvis. Also with elevated lipase and epigastric tenderness. Was made n.p.o. and started on IV fluids. Also prescribed as needed pain medications. During her hospital stay, she had a single level fall. Imaging was negative. Abdominal pain resolved. Patient was able to tolerate a diet. Patient left AMA on 11/23. Disposition: 07 LEFT AGAINST MEDICAL ADVICE Final Discharge Diagnosis (Prints w/discharge instructions): Acute pancreatitis. Hyperkalemia. Alcohol dependence Core Measure Documentation - Palliative Care Palliative Care/ Comfort Measures: Not Applicable - Core Measures Any of the following diagnoses?: none Exam - Physical Exam Narrative exam: Patient left AMA prior to examination. - Constitutional Vitals: Temp Pulse Resp BP Pulse Ox 98.8 F 96 H 20 130/88 95 11/23/20 22:14 11/23/20 22:14 11/23/20 22:14 11/23/20 22:14 11/23/20 22:14 Plan Follow up with: FABIEN GUERRERO MD [Primary Care Provider] - 7 Days
[2020-11-25] MEDS ORDERED: THIAMINE 100 MG TAB PO SCH (10:00)
== END 2020-11-24 03:00 | disposition left against medical advice (07) | DRG 439 ==
LOC: ED 12:37 → 3A 18:06
PROVIDERS: ADMIT Internal Medicine; ATTEND Student in an Organized Health Care Education/Training Program
DX: K85.90 Acute pancreatitis without necrosis or infection, unspecified (principal); E66.2 Morbid (severe) obesity with alveolar hypoventilation; Z68.32 Body mass index [BMI] 32.0-32.9, adult; F10.20 Alcohol dependence, uncomplicated; E11.9 Type 2 diabetes mellitus without complications; Z82.49 Family history of ischemic heart disease and other diseases of the circulatory system; Z20.822 Contact with and (suspected) exposure to COVID-19
CPT/HCPCS: 36415; 70450; 72100; 74176; 80048; 80053; 80320; 82962; 83036; 83690; 83735; 84100; 84132; 85025; 85027; 87086; G0378; G0480; J0500; J1630; J1815; J1885; J2060; J2270; J2405; J3411; J3475; J3486; J7030